=== PATIENT | female | born 2005 | race Asian ===

== ENCOUNTER 2025-01-05 09:40 | Outpatient (CLI) | payer BC, SELFPAY | END 2025-01-05 09:41 | disposition home or self-care (01) | LOC: NFLDREF 18:33 | PROVIDERS: PCP Family Medicine; Referring Provider Family Medicine; Visit Provider Physician Assistant | DX: R35.0 Frequency of micturition (principal); N39.0 Urinary tract infection, site not specified | CPT/HCPCS: 87086 ==